=== PATIENT | female | born 1965 | race Caucasian/White ===

== ENCOUNTER 2022-03-13 14:09 | Outpatient (CLI) | payer OTHER, SELFPAY | END 2022-03-13 14:10 | disposition home or self-care (01) | LOC: ANHBWCAUD 14:10 | DX: H93.13 Tinnitus, bilateral (principal); H90.41 Sensorineural hearing loss, unilateral, right ear, with unrestricted hearing on the contralateral side | CPT/HCPCS: 92557; 92567 ==